=== PATIENT | female | born 1950 | race African-American/Black ===

== ENCOUNTER 2023-09-04 12:50 | Day surgery (SDC) | payer OTHER ==
[2023-09-04] MEDS: IRON SUCROSE COMPLEX 200 MG in SODIUM CHLORIDE 100 ML IVPB SCH (13:35)
[2023-09-04 15:04] VITALS: BP 159/79; PULSE 66; RESP 18; TEMP 98.9
== END 2023-09-04 14:40 | disposition home or self-care (01) ==
LOC: FINFUSION 12:50 → FM/S 12:51 → FINFUSION 14:40
PROVIDERS: ATTEND Internal Medicine Hematology & Oncology
PROC: 3E033GC Introduction of Other Therapeutic Substance into Peripheral Vein, Percutaneous Approach (ICD-10-PCS; principal; 2023-09-04)
DX: D50.9 Iron deficiency anemia, unspecified (principal)
CPT/HCPCS: 96365